=== PATIENT | male | born 1985 | race Caucasian/White ===

== ENCOUNTER 2018-12-14 20:37 | Emergency (ER) | payer OTHER ==
[~2018-12-14] VITALS: Ht 177.8 cm; Wt 94.8 kg
[2018-12-14 20:45] VITALS: BP 130/68
--- NOTE | 2018-12-14 20:55 | PHYS DOC ---
Past History Past Medical History: Migraines Past Surgical History: Other Additional Past Surgical Histo: gynecomastia surgery Adult General HPI HPI Patient is a 33-year-old male presents with left breast pain and swelling. Patient had gynecomastia surgery bilaterally today at [facility]. Swelling has been getting worse throughout the course of the afternoon and evening. No significant pain relief with his prescribed narcotic pain medicine.[] Review of Systems Review of Systems Constitutional: Denies fever or chills [] Eyes: Denies change in visual acuity, redness, or eye pain [] HENT: Denies nasal congestion or sore throat [] Respiratory: Denies cough or shortness of breath [] Cardiovascular: No chest pain or palpitations[] GI: Denies abdominal pain, nausea, vomiting, bloody stools or diarrhea [] : Denies dysuria or hematuria [] Musculoskeletal: Denies back pain or joint pain [] Integument: Denies rash or skin lesions [] Neurologic: Denies headache, focal weakness or sensory changes [] Endocrine: Denies polyuria or polydipsia [] All other systems were reviewed and found to be within normal limits, except as documented in this note. Physical Exam Physical Exam Constitutional: Well developed, well nourished, no acute distress, non-toxic appearance. [] HENT: Normocephalic, atraumatic, bilateral external ears normal, oropharynx moist, no oral exudates, nose normal. [] Eyes: PERRLA, EOMI, conjunctiva normal, no discharge. [] Neck: Normal range of motion, no tenderness, supple, no stridor. [] Cardiovascular:Heart rate regular rhythm, no murmur [] Lungs & Thorax: Bilateral breath sounds clear to auscultation, left breast is significantly swollen compared to the right. Dressing is in place. [] Abdomen: Bowel sounds normal, soft, no tenderness, no masses, no pulsatile masses. [] Skin: Warm, dry, no erythema, no rash. [] Back: No tenderness, no CVA tenderness. [] Extremities: No tenderness, no cyanosis, no clubbing, ROM intact, no edema. [] Neurologic: Alert and oriented X 3, normal motor function, normal sensory function, no focal deficits noted. [] Psychologic: Affect normal, judgement normal, mood normal. [] EKG EKG [] Radiology/Procedures Radiology/Procedures [] Course & Med Decision Making Course & Med Decision Making Pertinent Labs and Imaging studies reviewed. (See chart for details) ED course: Patient arrived, was placed in bed, and tolerated exam well. C onsultation was made with Dr. Sullivan's team, the team that performed the surgery. Dr. Perdomo was on-call. Discussed the case with him. Options included discharged home since pain was under control versus transfer to [place] for evaluation by Dr. Sullivan in the morning. Discussed these options with the patient who preferred to be transferred to [place]. Consultation was made wi the hospitalist service. Patient was transferred in improved condition. Medical decision making: Do not see any evidence of an infection. Concern for seroma versus hematoma. There is no active bleeding at this time.[] Dragon Disclaimer Dragon Disclaimer This electronic medical record was generated, in whole or in part, using a voice recognition dictation system. Departure Departure: Impression: Primary Impression: Breast swelling Disposition: 05 TRANSFER OTHER Admitting Physician: Moisés Ramirez Condition: IMPROVED Referrals: PCP,UNKNOWN (PCP) SHANELL HENDRICKSON DO December 14, 2018 20:55
== END 2018-12-14 22:58 | disposition short-term general hospital (02) ==
LOC: ER 20:37
DX: N63.0 Unspecified lump in unspecified breast (principal); N64.4 Mastodynia; G43.909 Migraine, unspecified, not intractable, without status migrainosus
CPT/HCPCS: 99285

== ENCOUNTER 2018-12-30 09:21 | Emergency (ER) | payer OTHER ==
[~2018-12-30] VITALS: Ht 177.8 cm; Wt 97.8 kg
[2018-12-30] MEDS ORDERED: KETOROLAC 15 MG/ML VIAL. IV ONE (09:30)
--- NOTE | 2018-12-30 09:36 | PHYS DOC ---
Past History Past Medical History: Migraines Past Surgical History: Other Additional Past Surgical Histo: gynecomastia surgery Smoking: Non-smoker Alcohol Use: Occasionally Drug Use: None Adult General Chief Complaint Chief Complaint: SHORTNESS OF BREATH HPI HPI Patient is a 33-year-old male presents with chest pain and shortness of breath that has been present intermittently for the past several days. No specific worsening with exertion. Possibly a little bit of respirophasic component. Patient notes that he had a cough that was nonproductive yesterday evening. No fever. No leg swelling. Patient had gynecomastia surgery on 14 Dec 2018. No recent travel. No known hypercoagulable state. He is been wearing an Rolly wrap as a binder due to complications of the surgery, the left breast had an acc umulation of blood postoperatively. He was evaluated at [place] for this and no evacuation of the hematoma nor additional surgery was performed.[] Review of Systems Review of Systems Constitutional: Denies fever or chills [] Eyes: Denies change in visual acuity, redness, or eye pain [] HENT: Denies nasal congestion or sore throat [] Respiratory: Denies cough or shortness of breath [] Cardiovascular: No additional information not addressed in HPI [] GI: Denies abdominal pain, nausea, vomiting, bloody stools or diarrhea [] : Denies dysuria or hematuria [] Musculoskeletal: Denies back pain or joint pain [] Integument: Denies rash or skin lesions [] Neurologic: Denies headache, focal weakness or sensory changes [] Endocrine: Denies polyuria or polydipsia [] All other systems were reviewed and found to be within normal limits, except as documented in this note. Allergies Allergies Allergies Coded Allergies Type Severity Reaction Last Updated Verified No Known Drug Allergies 12/14/18 No Physical Exam Physical Exam Constitutional: Well developed, well nourished, no acute distress, non-toxic appearance. [] HENT: Normocephalic, atraumatic, bilateral external ears normal, oropharynx moist, no oral exudates, nose normal. [] Eyes: PERRLA, EOMI, conjunctiva normal, no discharge. [] Neck: Normal range of motion, no tenderness, supple, no stridor. [] Cardiovascular:Heart rate regular rhythm, no murmur [] Lungs & Thorax: Bilateral breath sounds clear to auscultation. Left breast region still appears more full than the right, however it is improved from when I saw him earlier this month. Incisions appear to be clean and dry. There is no tenderness to palpation in the chest. No flail segments. No crepitus.[] Abdomen: Bowel sounds normal, soft, no tenderness, no masses, no pulsatile masses. [] Skin: Warm, dry, no erythema, no rash. [] Back: No tenderness, no CVA tenderness. [] Extremities: No tenderness, no cyanosis, no clubbing, ROM intact, no edema. [] Neurologic: Alert and oriented X 3, normal motor function, normal sensory function, no focal deficits noted. [] Psychologic: Affect normal, judgement normal, mood normal. [] Current Patient Data Vital Signs Vital Signs Date Time Temp Pulse Resp B/P (MAP) Pulse Ox O2 Delivery O2 Flow Rate FiO2 12/30/18 09:21 97.7 65 16 99 Room Air EKG EKG EKG shows a sinus rhythm at 67 bpm, normal axis, normal QTC, no ST elevations. No old EKG is available for comparison. Interpreted by me at 0928.[] Radiology/Procedures Radiology/Procedures Chest x-ray shows no infiltrate, no effusion, no pneumothorax CT scan was discussed with the radiologist. There is no evidence of a pulmonary embolism. There is a hyperdense material in his left breast. Discussed with the radiologist that patient had gynecomastia surgery and this was a complication from the surgery. CTA OF THE CHEST WITH AND WITHOUT CONTRAST Clinical indications: Chest pain and shortness of breath. Elevated d-dimer. Recent surgery. Technique: Noncontrast axial localizer was performed. After IV infusion of 100 cc of Omnipaque 350, helical CT scanning of the chest was performed using the CT pulmonary embolism protocol. A coronal MIP reconstruction was generated. PQRS compliance Statement One or more of the following individualized dose reduction techniques were utilized for this study: 1. Automated exposure control 2. Adjustment of the mA and/or kV according to patient size 3. Use of iterative reconstruction technique Comparison: None available. Findings: No pulmonary embolism is evident. No thoracic aortic dissection is evident. No focal aneurysmal dilatation is seen. The heart size is mildly enlarged. No pericardial effusion is seen. No enlarged thoracic lymphadenopathy is evident. No lung mass or lung consolidation is evident. No pleural effusion or pneumothorax is evident. The proximal bronchial tree is patent. No lytic process is seen. The adrenal glands are not seen in this study. There is asymmetric enlargement of the left breast. There is dense material within the central aspect of the breast with may represent a hematoma. IMPRESSION: No pulmonary embolism. Mild cardiomegaly. No acute lung infiltrate. There is edema of both breasts.The patient has had bilateral breast surgery for gynecomastia recently. There is asymmetric enlargement of the left breast due to a central hematoma. This hematoma measures 8.2 cm in greatest transverse dimension. [] Course & Med Decision Making Course & Med Decision Making Pertinent Labs and Imaging studies reviewed. (See chart for details) ED course: Patient arrived, was placed in bed, and tolerated exam well. He was transported to and from CT after the return of the elevated d-dimer. Tolerated this without any complications. After the return of laboratory and imaging studies, these were discussed with the patient who voiced understanding. All questions were answered. He was discharged in improved condition. Medical decision making: There is no evidence of pneumonia, pneumothorax, pulmonary embolism, acute coronary syndrome, esophageal rupture, nor thoracic aortic dissection.[] Dragon Disclaimer Dragon Disclaimer This electronic medical record was generated, in whole or in part, using a voice recognition dictation system. Departure Departure: Impression: Primary Impression: Chest pain Disposition: HOME, SELF-CARE Condition: IMPROVED Referrals: MARIA ESTHER MARCELO (PCP) Follow-up in 2 days Patient Instructions: Chest Pain (Nonspecific) Additional Instructions: Follow-up with your regular doctor in 2 days. Keep your appointment with the surgeon regarding follow-up for the gynecomastia surgery. Return to the ER if worsening discomfort or any other concerns. Scripts Meloxicam (MELOXICAM) 7.5 Mg Tablet 7.5 MG PO DAILY for PAIN, #20 TAB Prov: SHANELL HENDRICKSON DO 12/30/18 Problem Qualifiers Primary Impression: Chest pain Chest pain type: unspecified Qualified Codes: R07.9 - Chest pain, unspecified SHANELL HENDRICKSON DO December 30, 2018 09:36
[2018-12-30 09:49] LABS: BASO % 1 % (0-3); EOS # 0.1 x10^3/uL (0.0-0.7); EOS % 2 % (0-3); HEMATOCRIT 44.8 % (39.0-53.0); HEMOGLOBIN 15.6 g/dL (13.0-17.5); LYMPH # 1.5 x10^3/uL (1.0-4.8); LYMPH % 24 % (24-48); MEAN CORPUSCULAR HEMOGLOBIN 33 pg (25-35); MEAN CORPUSCULAR HGB CONC 35 g/dL (31-37); MEAN CORPUSCULAR VOLUME 93 fL (79-100); MONO # 0.5 x10^3/uL (0.0-1.1); MONO % 8 % (0-9); NEUT % 65 % (31-73); PLATELET COUNT 295 x10^3/uL (140-400); RED BLOOD COUNT 4.81 x10^6/uL (4.30-5.70); RED CELL DISTRIBUTION WIDTH 12.6 % (11.5-14.5); WHITE BLOOD COUNT 6.1 x10^3/uL (4.0-11.0)
[2018-12-30 10:01] LABS: ALBUMIN 4.2 g/dL (3.4-5.0); ALBUMIN/GLOBULIN RATIO 1.3 (1.0-1.7); CREATININE 1.3 mg/dL (0.7-1.3); GFR 63.2; TOTAL BILIRUBIN 0.7 mg/dL (0.2-1.0); TOTAL PROTEIN 7.4 g/dL (6.4-8.2)
--- NOTE | 2018-12-30 10:09 | RAD ---
PORTABLE CHEST 1V Clinical indications: Chest pain COMPARISON: None available. Findings: No acute lung infiltrate or pleural effusion or pulmonary edema or lung mass or pneumothorax is seen. The heart size, pulmonary vasculature, mediastinum and both ginna are unremarkable. Impression: No acute radiographic abnormality is seen. Electronically signed by: Onur Camacho MD (12/30/2018 10:06 AM) [facility]
[2018-12-30 10:24] VITALS: BP 119/66
[2018-12-30] MEDS ORDERED: IOHEXOL 350 MG/ML 100 ML VIAL. IV ONE (10:30)
--- NOTE | 2018-12-30 11:27 | RAD ---
CTA OF THE CHEST WITH AND WITHOUT CONTRAST Clinical indications: Chest pain and shortness of breath. Elevated d-dimer. Recent surgery. Technique: Noncontrast axial localizer was performed. After IV infusion of 100 cc of Omnipaque 350, helical CT scanning of the chest was performed using the CT pulmonary embolism protocol. A coronal MIP reconstruction was generated. PQRS compliance Statement One or more of the following individualized dose reduction techniques were utilized for this study: 1. Automated exposure control 2. Adjustment of the mA and/or kV according to patient size 3. Use of iterative reconstruction technique Comparison: None available. Findings: No pulmonary embolism is evident. No thoracic aortic dissection is evident. No focal aneurysmal dilatation is seen. The heart size is mildly enlarged. No pericardial effusion is seen. No enlarged thoracic lymphadenopathy is evident. No lung mass or lung consolidation is evident. No pleural effusion or pneumothorax is evident. The proximal bronchial tree is patent. No lytic process is seen. The adrenal glands are not seen in this study. There is asymmetric enlargement of the left breast. There is dense material within the central aspect of the breast with may represent a hematoma. IMPRESSION: No pulmonary embolism. Mild cardiomegaly. No acute lung infiltrate. There is edema of both breasts.The patient has had bilateral breast surgery for gynecomastia recently. There is asymmetric enlargement of the left breast due to a central hematoma. This hematoma measures 8.2 cm in greatest transverse dimension. Note-this result was discussed with the emergency room physician Dr. Og Campoverde at 11:22 AM on December 30, 2018. Electronically signed by: Onur Camacho MD (12/30/2018 11:24 AM) [facility]
[2018-12-30] MEDS ORDERED: MELO7.5T29 PO (11:30)
--- NOTE | 2019-01-01 06:35 | EKG ---
[address] [address] Test Date: 2018-12-30 Test Time: 09:29:33 Pat Name: VAELINA STEWARD Department: Room: Gender: M [employer]: : 1985 Requested By: SHANELL HENDRICKSON Order Number: [id number] Reading MD: Measurements Intervals [place] Rate: 67 P: 62 [place]: 168 QRS: 59 QRSD: 92 T: 31 QT: 382 QTc: 406 Interpretive Statements SINUS RHYTHM NO SPECIFIC ECG ABNORMALITIES RI6.01 No previous ECG available for comparison
== END 2018-12-30 11:44 | disposition home or self-care (01) ==
LOC: ER 09:21
DX: R07.89 Other chest pain (principal); G43.909 Migraine, unspecified, not intractable, without status migrainosus
CPT/HCPCS: 36415; 71045; 71275; 80053; 83690; 83735; 83880; 84484; 85025; 85379; 85610; 85730; 93005; 96374; 99285; J1885